=== PATIENT | female | born 1990 | race Caucasian/White ===

== ENCOUNTER 2022-06-20 01:02 | Day surgery (SDC) | payer OTHER, SELFPAY ==
[2022-06-06 10:24] VITALS: BMI 26.6
--- NOTE | 2022-06-06 10:29 | PC.NURSE ---
Report to the Outpatient Waiting Room, entrance under the green pavilion located off [facility], at time 1000 on date 06/20/22. Planned Procedure Time: 1200. Time changes happen often and if your time is changed the preop area will call you the afternoon before. - You and your visitor will be asked to self-screen and do not enter if you have any COVID symptoms. - Only one visitor is requested with a max of two and NO children visitors are allowed at this time. - The patient visitor may be requested to leave or wait in car when not with patient due to distancing restrictions. - A mask is optional within the hospital at this time. Patients may have clear liquids (water, carbonated beverages, clear teas, apple juice) until 3 hours prior to surgery with a maximum of 20 ounces. - No food from midnight until time of surgery Take the following medications with a SIP of water the morning of surgery: N/A DO NOT STOP ANY OF YOUR OTHER PRESCRIPTION MEDICATIONS PRIOR TO SURGERY EXCEPT THE FOLLOWING Medications to discontinue per physician: N/A Date to take last dose: N/A Please no make-up, nail south korean, hairspray, perfume, deodorant, or body powder the day of surgery. No jewelry (including any body piercings) or valuables the day of surgery, leave them at home. Please take a shower or bath the night before, or the morning of, surgery with an antibacterial soap. Wear comfortable, loose fitting clothing. - Jewelry must be removed prior to entering the operating room. Rings and piercings that are not removed may be cut off. - The hospital will not accept responsibility for valuables. - Please leave all valuables, including medications, at home the day of surgery. If you are going home after surgery, a licensed automobile drivers must drive you home. - NO public transportation without another adult if you receive anesthesia. - We recommend that an adult stay with you for 24 hours following discharge. - We also recommend that you do not drive, make important decision, drink alcoholic beverages, or take any drugs that were not prescribed by your health care provider for at least 24 hours after your discharge time. Follow any additional instructions given to you from your surgeon. If you or anyone in your household have experienced Covid symptoms in the past week, please notify your surgeon or the nurse liaison at the phone number below for possible testing. Telephone instructions given to PT - TERRENCE LEUNG and asked if any additional questions and then verbalized understanding. Patient advised to call surgeon office or pre surgery nurse liaison [phone] if any additional questions.
[2022-06-20] VITALS (9 sets, daily range): BP systolic 90–119; BP diastolic 52–70; PULSE 53–77; RESP 16–22; TEMP 36.3–37.4; O2SAT 92–100
--- NOTE | 2022-06-20 10:03 | WPDHPUPDATE1 ---
History and Physical Update Update Date/Time: 06/20/22 10:03 History and Physical has been reviewed, including an updated exam of the patient. There are NO changes in the patient's condition. Risks, benefits, and alternatives have been discussed and questions answered. Patient agrees to proceed with procedure.
--- NOTE | 2022-06-20 10:03 | W.PM.PROC2 ---
Procedure Note - Detailed Date of Procedure 06/20/22 Pre-op Diagnosis skin laxity, localized adiposity Post-op Diagnosis Same Procedure Performed Progressive tension abdominoplasty with suction lipectomy Surgeon Nik Jasso MD Anesthesia General Findings Tissue removed: 871.4 grams Lipoaspirate: 2,000 cc Description of Procedure They are here today for abdominoplasty. Previously and again today the risks, benefits, alternatives were discussed in extensive detail. I wanted them to be very realistic about the risks involved as well as expectations. We discussed aftercare and what to monitor for. I was very upfront about the risks of wound breakdown leading to loss of skin, open wounds, and need for additional procedures with permanent abdominal deformity. We discussed DVT/PE risks and management. Made sure answered all of their questions to their satisfaction today and consent was obtained. They were marked in the preoperative holding area with their verification. The patient was taken to the operating room placed supine on the operating table. Anesthesia was provided by anesthesiology. A Bond catheter was started. They were prepped and draped in a standard sterile fashion. A surgical time-out was taken. I placed the patient in a flexed position to verify the upper and lower markings would reach. I then placed supine. A thorough abdominal examination was completed. Stab incisions were made and tumescent solution infiltrated. Once adequate time was allowed for hemostasis a 5mm basket cannula was utilized to complete suction lipectomy based on S.A.F.E. technique in multiple planes and passes. There were turned to bilateral lateral decubitus position with care taken to protect them for injury during this process. Suction lipectomy continued to result based on pre-operative planning, intra-operative observation, and rolling pinch test which were in full agreement. A 10 blade was used to make the upper incision. I continued dissection down to the level of fascia. Elevated just what was necessary for repair of the diastasis. I then again flexed the bed to verify the upper skin flap would reach the lower markings without tension. Once verified I placed her supine once again and a 10 blade used to make the lower incision. I elevated up to level the umbilicus and left the umbilicus intact on a well-vascularized stalk. The intervening tissue was removed. A 2 mm blunt cannula with 0.5% bupivicaine was injected deep to the fascia bilaterally. I plicated the diastasis recti using 0 PDO stratafix barbed suture. This was in 2 separate layers using 2 separate sutures as well. I repaired around the umbilicus leaving plenty of room for well-vascularized stalk of the umbilicus with 2-0 PDS. The patient was flexed and starting from superior to inferior began plication using 2-0 Vicryl to obliterate all space in a standard progressive tension fashion. At the umbilicus I marked out the location of the skin and inset this with 3-0 Monocryl and 4-0 Vicryl. I continued the remainder of the plication using 2-0 Vicryl until I reached my lower planned scar line. I trimmed any excess skin of the upper flap making sure this was a tension-free closure. I then approximated using a 3 point suture with 2-0 Vicryl followed by 3-0 stratafix ,running subcuticular 4-0 Monocryl, and tissue glue. Fluffs and an abdominal binder were placed. The patient was transferred to the bed in a flexed position. Awoken and taken to the PACU without difficulty. All instrument and sponge counts were correct at the end of the case. Estimated Blood Loss 75 Drains No Packing No Pathology None sent Complications No immediate complications Condition Stable Disposition PACU
[2022-06-20 10:07] LABS: Urine Cotinine NEGATIVE
[2022-06-20] MEDS: SCOPOLAMINE 1.5 MG PATCH TRANSDERM (10:07)
[2022-06-20] MEDS: LACTATED RINGERS 1,000 ML 30 ML IV CONT ×2 (10:15→14:29)
--- NOTE | 2022-06-20 10:36 | WPDANESEPPF ---
Anes - Initial Pre Proc Eval Procedure: Operation Date: 06/20/22 12:00 Proposed Procedures p Abdominoplasty with Liposuction - Nik Jasso MD Date/Time: 06/20/22 10:36 Surgeon: Nik Jasso MD Pre Op Diagnosis: skin laxity, localized adiposity Patient Data Age: 31 Gender: F Height: 1.68 m Weight: 75.6 kg Last Vital Signs Temp 37.4 C 06/20/22 10:27 Pulse 60 06/20/22 10:27 Resp 20 06/20/22 10:27 BP 103/59 L 06/20/22 10:27 Pulse Ox 100 06/20/22 10:27 O2 Del Method Room Air 06/20/22 10:27 Allergies Allergy/AdvReac Type Severity Reaction Status Date / Time celecoxib [From Celebrex] Allergy Unknown Rash Verified 06/20/22 09:59 gabapentin Allergy Unknown Rash Verified 06/20/22 09:59 Home Medications Medication Instructions Recorded Confirmed Type No Home Medications 06/06/22 06/20/22 History Laboratory Tests 06/20/22 09:46 Cotinine Negative Patient hx anesthesia problems: none Family hx anesthesia problems: none Results Review: All pre-operative results and documents have been reviewed as part of the pre-operative evaluation. [facility] Past Medical History Medical History (Updated 06/20/22 @ 10:36 by Harrison Crawford MD) Overweight Social History Social History Smoking status: Never smoker Alcohol intake: current Drinks per week: 1 Substance use: never Substance use type: does not use Living arrangements: with family Spiritual care concerns: No Anes - Eval Final PreProcedure Day of Procedure 06/20/22 10:36 Patient weight: overweight Heart: regular rate and rhythm Lungs: clear to auscultation Airway: Mallampati scale class II Neurological: alert and oriented Last oral intake: >/= 8 hours ASA classification: II Emergent: no Anesthetic plan: proceed Anesthesia type and monitoring: general ETT and standard monitoring Results Review: All pre-operative results and documents have been reviewed as part of the pre-operative evaluation. Informed Consent: The patient's anesthetic plan and its attendant risks and benefits were discussed with the patient/family/POA. Questions were solicited and answers provided to the satisfaction of the patient/family/POA.
[2022-06-20] MEDS: TRANEXAMIC ACID 1,000MG/ISO100 1,000 MG/100 ML BAG 200 MG IVPB (10:38)
[2022-06-20] MEDS: ceFAZolin 2 GM/D5W 50 ML 2 GM/50 ML BAG IVPB (10:38)
[2022-06-20] MEDS: LIDO 1%/EPINEPHRINE 1:100,000 20 ML VIAL 30 ML INFILTRATE (11:22)
[2022-06-20] MEDS: BUPivacaine HCL 0.25% PF 30 ML VIAL INFILTRATE (11:23)
[2022-06-20] MEDS: LACTATED RINGERS IRRIG 1,000 ML, LIDOCAINE HCL 1% LOCAL INJ 50 ML, EPINEPHrine HCL INJ ... INFILTRATE (14:14)
[2022-06-20] MEDS: fentaNYL CITRATE INJ (*CRX) 100 MCG/2 ML VIAL 25 MCG IV PUSH ×3 (14:57→15:34)
--- NOTE | 2022-06-20 16:14 | ADMGEN ---
1549-This patient, Mandi Villalobos, was admitted to OB 2nd Floor Room 289-00. Patient/family oriented to hospital policies and general routines including ID bracelet, bed and alarms, visiting hours, pain management, procedures, bathroom and other care routines, personal items, smoking policy, room service/diet, and visiting hours. Information on how to activate the Rapid Response Team has been discussed. Patient/Family are encouraged to report perceived risks to care and to ask questions if they do not understand what they are told or what they should do.
[2022-06-20] MEDS: KETOROLAC 15 MG/ML VIAL (*BKC) IV PUSH (16:27)
[2022-06-20] MEDS: LACTATED RINGERS 1,000 ML 125 ML IV CONT (16:29)
[2022-06-20] MEDS: carisoprodoL (*CRX) 350 MG TABLET PO ×2 (17:55→23:53)
[2022-06-20] MEDS: ENOXAPARIN 40 MG/0.4 ML SYRINGE SUB-Q (19:07)
[2022-06-20] MEDS: oxyCODONE/ACETAMINOPHEN (*CRX) 5-325 MG TABLET PO ×2 (19:07→23:53)
[2022-06-20] MEDS: DOCUSATE SODIUM 100 MG CAPSULE PO (19:07)
[2022-06-21] VITALS (8 sets, daily range): BP systolic 86–103; BP diastolic 45–67; PULSE 52–100; RESP 16–18; TEMP 37.1–38.7; O2SAT 60–99
[2022-06-21] MEDS: KETOROLAC 15 MG/ML VIAL (*BKC) IV PUSH ×3 (01:15→16:03)
[2022-06-21] MEDS: oxyCODONE/ACETAMINOPHEN (*CRX) 5-325 MG TABLET PO ×5 (01:15→21:30)
[2022-06-21] MEDS: carisoprodoL (*CRX) 350 MG TABLET PO ×3 (05:40→20:34)
[2022-06-21] MEDS: LACTATED RINGERS 1,000 ML 999 ML IV CONT ×3 (06:00→16:04)
--- NOTE | 2022-06-21 07:08 | WPDPN ---
Progress Note: A&P Assessment and Plan (1) Skin laxity: Code(s): L57.4 - Cutis laxa senilis Status: Acute Assessment and Plan: Doing well after progressive tension abdominoplasty. Will discharge home. Follow-up 1 week. Today we had a lengthy discussion about the care. Activity limitations. What to monitor for. What is an emergency and when to proceed to the ER / dial 911. Call us with all other questions or concerns. They voiced a clear understanding. Will see her back. (2) Localized adiposity: Code(s): E65 - Localized adiposity Status: Acute Subjective Date/time seen: 06/21/22 07:08 Interval history: Doing well after progressive tension abdominoplasty with suction lipectomy. Lightheaded this AM when getting up, quickly resolved in bed / with fluids. Doing well. No f/c. No n/v. No SOB. No CP. No calf tenderness. Review of Systems Review of Systems: All systems reviewed & are unremarkable except as noted in HPI and below Exam Narrative: A&O NOD Respiratory unlabored Abdomen soft. No signs of infection. No hematoma. No seroma. Good color / cap refill. No calf tenderness. Negative Homman's. Objective Data Vital Signs Vital Signs: Vital Signs - 24 hr 06/20/22 10:27 06/20/22 14:28 06/20/22 14:43 Temperature 37.4 C 36.3 C L Pulse Rate 60 70 61 Respiratory Rate 20 22 H 17 Blood Pressure 103/59 L 90/52 L 90/55 L Pulse Oximetry 100 100 100 Oxygen Delivery Room Air Simple Face Mask Simple Face Mask Oxygen Flow Rate 10 10 06/20/22 14:58 06/20/22 15:13 06/20/22 15:28 Temperature 36.6 C Pulse Rate 57 L 54 L 53 L Respiratory Rate 19 16 16 Blood Pressure 107/65 103/62 105/68 Pulse Oximetry 100 92 94 Oxygen Delivery Simple Face Mask Room Air Room Air Oxygen Flow Rate 10 06/20/22 15:39 06/20/22 16:00 06/20/22 16:00 Temperature 36.4 C L Pulse Rate 69 59 L 59 L Respiratory Rate 18 16 16 Blood Pressure 102/64 109/70 Pulse Oximetry 95 97 97 Oxygen Delivery Room Air Room Air Oxygen Flow Rate 06/20/22 19:05 06/21/22 05:45 Temperature 37.3 C Pulse Rate 77 52 L Respiratory Rate 16 16 Blood Pressure 119/66 87/54 L Pulse Oximetry 93 Oxygen Delivery Oxygen Flow Rate Intake/Output Intake/Output: Intake & Output 06/18/22 06/19/22 06/20/22 06/21/22 23:59 23:59 23:59 23:59 Intake Total 1624 1126 Output Total 400 1000 Balance 1224 126 Meds/Results Medications: Active Medications Generic Name Dose Route Start Last Admin Trade Name Freq PRN Reason Stop Dose Admin Carisoprodol 350 mg 06/20/22 18:00 06/21/22 05:40 Carisoprodol (*Crx) 350 Mg Tablet PO 350 mg Q6HR TAI Administration Diazepam 5 mg 06/20/22 14:05 Diazepam (*Crx) 5 Mg Tablet PO TID PRN Anxiety Docusate Sodium 100 mg 06/20/22 21:00 06/20/22 19:07 Docusate Sodium 100 Mg Capsule PO 100 mg Q12HR TAI Administration Enoxaparin Sodium 40 mg 06/20/22 20:00 06/20/22 19:07 Enoxaparin 40 Mg/0.4 Ml Syringe SUB-Q 40 mg DAILY TAI Administration Lactated Ringer's 1,000 mls @ 125 mls/hr 06/20/22 14:05 06/21/22 06:00 Lr - Lactated Ringers Iv IV CONT 999 mls/hr .Q8H TAI Administration Ketorolac Tromethamine 15 mg 06/20/22 14:05 06/21/22 01:15 Ketorolac 15 Mg/Ml Vial (*Bkc) IV PUSH 15 mg Q6H PRN Administration Pain Rated 4-6 Morphine Sulfate 2 mg 06/20/22 14:05 Morphine Sulfate (*Crx) 2 Mg/Ml Inj IV PUSH Q2H PRN Pain Ondansetron HCl 4 mg 06/20/22 14:05 Ondansetron Inj 4 Mg/2 Ml Vial IV PUSH Q6H PRN Nausea Oxycodone/Acetaminophen 1 - 2 tablet 06/20/22 14:05 06/21/22 05:40 Oxycodone/Acetaminophen (*Crx) 5-325 Mg Tablet PO 1 tablet Q6H PRN Administration Pain Labs Labs: Laboratory Results - last 24 hr 06/20/22 09:46 Cotinine Negative
--- NOTE | 2022-06-21 07:12 | P.DS_ITS ---
DS: Admitting Diagnosis Discharge Date 06/21/2022 Admitting Diagnosis Skin laxity Localized adiposity DS: Discharge Diagnosis Discharge Diagnosis (1) Skin laxity: Code(s): L57.4 - Cutis laxa senilis Status: Acute (2) Localized adiposity: Code(s): E65 - Localized adiposity Status: Acute DS: Summary Hospital Course Hospital Course: Underwent progressive tension abdominoplasty with suction lipectomy. Has done very well. Will discharge home. Follow-up. Time Spent with Patient Time attestation: Total time spent providing and/or coordinating discharge services: Exam Narrative: A&O NOD Respiratory unlabored Abdomen soft. No signs of infection. No hematoma. No seroma. Good color / cap refill. No calf tenderness. Negative Homman's. DS: Data Data Completed and Pending Labs on day of discharge: Labs from last 24 hours 06/20/22 09:46 Cotinine Negative Discharge Plan Discharge Patient Disposition: Home, Self-Care Discharge Instructions: POST OPERATIVE DISCHARGE INSTRUCTIONS NIK JASSO M.D. [facility] PLASTIC SURGERY [facility] [facility] [address] [place] [address] * No driving for 24 hours after anesthesia and while you are taking pain medication. * Take all prescribed medication as directed * Diet as tolerated. * No lifting or activity that raises blood pressure for 48 hours. * Regular walking / ambulation. * May shower 24 hours after surgery. Once you shower do not take pain medication before showering as the combination of medication and heat may cause you to feel dizzy or pass out. * No pools or tubs for 2 weeks. * Slowly stand up straight as tolerated. * No straining or lifting more than 20 pounds. * If no bowel movement within 24 hours may use laxative. * Call with any questions or concerns. * Dressing Care: Continue abdominal binder / foam 23 hours per day. If you have any questions or concerns, please call the office . If it is after hours you will be directed to the international nurse exchange. Shortness of breath, chest pain, or other medical emergency dial 911 / proceed to the Emergency Room. Stand Alone Forms: General Discharge Instructions Follow-up/Referrals: Nik Jasso MD [Physician] - 1 Week Discharge Medications: No Action No Home Medications
--- NOTE | 2022-06-21 07:12 | PM.DS ---
DS: Admitting Diagnosis Discharge Date 06/21/2022 Admitting Diagnosis Skin laxity Localized adiposity DS: Discharge Diagnosis Discharge Diagnosis (1) Skin laxity: Code(s): L57.4 - Cutis laxa senilis Status: Acute (2) Localized adiposity: Code(s): E65 - Localized adiposity Status: Acute DS: Summary Hospital Course Hospital Course: Underwent progressive tension abdominoplasty with suction lipectomy. Has done very well. Will discharge home. Follow-up. Time Spent with Patient Time attestation: Total time spent providing and/or coordinating discharge services: Exam Narrative: A&O NOD Respiratory unlabored Abdomen soft. No signs of infection. No hematoma. No seroma. Good color / cap refill. No calf tenderness. Negative Homman's. DS: Data Data Completed and Pending Labs on day of discharge: Labs from last 24 hours 06/20/22 09:46 Cotinine Negative Discharge Plan Discharge Patient Disposition: Home, Self-Care Discharge Instructions: POST OPERATIVE DISCHARGE INSTRUCTIONS NIK JASSO M.D. [facility] PLASTIC SURG[facility] [facility] [address] [place] [address] [address] for 24 hours after anesthesia and while you are taking pain medication. Take all prescribed medication as directed Diet as tolerated. No lifting or activity that raises blood pressure for 48 hours. Regular walking / ambulation. May shower 24 hours after surgery. Once you shower do not take pain medication before showering as the combination of medication and heat may cause you to feel dizzy or pass out. No pools or tubs for 2 weeks. Slowly stand up straight as tolerated. No straining or lifting more than 20 pounds. If no bowel movement within 24 hours may use laxative. Call with any questions or concerns. Dressing Care: Continue abdominal binder / foam 23 hours per day. If you have any questions or concerns, please call the office . If it is after hours you will be directed to the web content director exchange. Shortness of breath, chest pain, or other medical emergency dial 911 / proceed to the Emergency Room. Stand Alone Forms: General Discharge Instructions Follow-up/Referrals: Nik Jasso MD [Physician] - 1 Week Discharge Medications: No Action No Home Medications
[2022-06-21] MEDS: ENOXAPARIN 40 MG/0.4 ML SYRINGE SUB-Q (09:58)
[2022-06-21] MEDS: DOCUSATE SODIUM 100 MG CAPSULE PO ×2 (09:58→20:34)
--- NOTE | 2022-06-21 17:43 | WPDANESPN ---
Anes - Prog Note Post-Op Date/Time: 06/21/22 17:43 Vital Signs: Last Vital Signs Temp 38.7 C H 06/21/22 16:00 Pulse 100 06/21/22 16:00 Resp 18 06/21/22 16:00 BP 103/67 06/21/22 16:00 Pulse Ox 96 06/21/22 14:17 O2 Del Method Room Air 06/21/22 14:17 O2 Flow Rate 10 06/20/22 14:58 Pain Score (VAS): 0 I/O: Intake & Output 06/21/22 06/21/22 06/21/22 07:59 15:59 23:59 Intake Total 2126 2050 500 Output Total 1000 1150 1200 Balance 1126 900 -700 Patient Feedback: Patient satisfied with anesthetic care.
[2022-06-22] MEDS: oxyCODONE/ACETAMINOPHEN (*CRX) 5-325 MG TABLET PO ×3 (00:47→10:15)
[2022-06-22] MEDS: carisoprodoL (*CRX) 350 MG TABLET PO ×2 (03:44→10:15)
[2022-06-22] MEDS: IBUPROFEN 600 MG TABLET (03:44)
[2022-06-22 06:20] VITALS: BP 99/61; PULSE 92; RESP 16; TEMP 37.7
--- NOTE | 2022-06-22 06:41 | WPDPN ---
Progress Note: A&P Assessment and Plan (1) Skin laxity: Code(s): L57.4 - Cutis laxa senilis Status: Acute Assessment and Plan: Doing well after progressive tension abdominoplasty. Feeling much better. Will discharge home. Follow-up 1 week. Again today we had a lengthy discussion about the care. Activity limitations. What to monitor for. What is an emergency and when to proceed to the ER / dial 911. Call us with all other questions or concerns. They voiced a clear understanding. Will see her back. (2) Localized adiposity: Code(s): E65 - Localized adiposity Status: Acute (3) Fever: Code(s): R50.9 - Fever, unspecified Status: Acute Assessment and Plan: This is low grade and does not appear to be related to her surgical course. She has been using an incentive spirometer and taking deep breaths. No signs of infection of abdomen. No dysuria. No signs or symptoms of DVT or PE. This fever has resolved and she is currently experiencing no symptoms. She did have a sick contact at home prior to the procedure. She will monitor. Reach out to her PCP or contact us as needed. Subjective Date/time seen: 06/22/22 06:41 Interval history: Doing well after progressive tension abdominoplasty with suction lipectomy. Yesterday when standing she continued to get lightheaded but by the end of the day this was resolved. She also had a low-grade fever which is resolved today. She has since discover that her child is ill and she believes she has something similar. She states it is very mild with no fevers today in overall feeling very well although worried because her child has had a cough and afraid she will start coughing. Review of Systems Review of Systems: All systems reviewed & are unremarkable except as noted in HPI and below Exam Narrative: A&O NOD Respiratory unlabored Abdomen soft. No signs of infection. No hematoma. No seroma. Good color / cap refill. No calf tenderness. Negative Homman's. Objective Data Vital Signs Vital Signs: Vital Signs - 24 hr 06/21/22 08:00 06/21/22 12:10 06/21/22 14:00 Temperature 37.2 C 37.9 C H 38.6 C H Pulse Rate 74 71 60 Respiratory Rate 16 16 16 Blood Pressure 91/45 L 96/48 L 86/47 L Pulse Oximetry 92 93 60 L Oxygen Delivery 06/21/22 14:17 06/21/22 16:00 06/21/22 17:25 Temperature 38.6 C H 38.7 C H 37.9 C H Pulse Rate 60 100 Respiratory Rate 18 18 Blood Pressure 86/47 L 103/67 Pulse Oximetry 96 Oxygen Delivery Room Air 06/21/22 19:14 06/22/22 06:20 Temperature 37.1 C 37.7 C H Pulse Rate 97 92 Respiratory Rate 18 16 Blood Pressure 92/52 L 99/61 L Pulse Oximetry 99 Oxygen Delivery Intake/Output Intake/Output: Intake & Output 06/19/22 06/20/22 06/21/22 06/22/22 23:59 23:59 23:59 23:59 Intake Total 1624 5916 1150 Output Total 400 3350 1725 Balance 1224 8406 -689 Meds/Results Medications: Active Medications Generic Name Dose Route Start Last Admin Trade Name Freq PRN Reason Stop Dose Admin Carisoprodol 350 mg 06/20/22 18:00 06/22/22 03:44 Carisoprodol (*Crx) 350 Mg Tablet PO 350 mg Q6HR TAI Administration Diazepam 5 mg 06/20/22 14:05 Diazepam (*Crx) 5 Mg Tablet PO TID PRN Anxiety Docusate Sodium 100 mg 06/20/22 21:00 06/21/22 20:34 Docusate Sodium 100 Mg Capsule PO 100 mg Q12HR TAI Administration Enoxaparin Sodium 40 mg 06/20/22 20:00 06/21/22 09:58 Enoxaparin 40 Mg/0.4 Ml Syringe SUB-Q 40 mg DAILY TAI Administration Lactated Ringer's 1,000 mls @ 125 mls/hr 06/20/22 14:05 06/21/22 23:57 Lr - Lactated Ringers Iv IV CONT Not Given .Q8H TAI Ketorolac Tromethamine 15 mg 06/20/22 14:05 06/21/22 16:03 Ketorolac 15 Mg/Ml Vial (*Bkc) IV PUSH 15 mg Q6H PRN Administration Pain Rated 4-6 Morphine Sulfate 2 mg 06/20/22 14:05 Morphine Sulfate (*Crx) 2 Mg/Ml Inj IV PUSH Q2H PRN Pain Ondanset
[2022-06-22] MEDS: DOCUSATE SODIUM 100 MG CAPSULE PO (10:15)
[2022-06-22] MEDS: ENOXAPARIN 40 MG/0.4 ML SYRINGE SUB-Q (10:15)
== END 2022-06-22 10:35 | disposition home or self-care (01) ==
LOC: ANHSURGERY 10:04 → ANHOB2 15:43
PROVIDERS: Visit Provider Surgery Plastic and Reconstructive Surgery
PROC: (CPT 15877; principal; 2022-06-20 12:00)
DX: Z41.1 Encounter for cosmetic surgery (principal); E65 Localized adiposity; L57.4 Cutis laxa senilis; R50.9 Fever, unspecified; R42 Dizziness and giddiness
CPT/HCPCS: 15877; 15830; 15847; 80307; 99199; A9270; J0171; J0330; J0690; J1100; J1170; J1650; J1885; J2250; J2405; J2704; J2710; J3010; J7120